=== PATIENT | male | born 1985 | race African-American/Black ===

== ENCOUNTER 2018-04-15 21:32 | Emergency (ER) | payer OTHER ==
[~2018-04-15] VITALS: Ht 182.9 cm; Wt 123.8 kg
--- NOTE | 2018-04-15 21:40 | NUR ---
PT BIBRA COMPLAINING OF FEELINGS OF DEPRESSION AND STATES HE IS FEELING TEMPTED TO USE DRUGS. PT DENIES SI, HI, AUDITORY/VISUAL HALLUCINATIONS. PT IS AAOX4. RESPIRATIONS EVEN AND UNLABORED. SKIN WARM AND INTACT. NO ACUTE DISTRESS NOTED AT THIS TIME. PT ABLE TO AMBULATE WITH STEADY GAIT. WILL CONTINUE TO MONITOR.
--- NOTE | 2018-04-15 21:48 | NUR ---
ER PA AT BEDSIDE FOR EVALUATION
--- NOTE | 2018-04-15 21:50 | NUR ---
URINE COLLECTED. CALLED LAB FOR SCALER
[2018-04-15 22:08] LABS: APPEARANCE,URINE CLEAR (CLEAR); BILIRUBIN,URINE NEGATIVE (NEGATIVE); BLOOD, URINE NEGATIVE Ery/uL (NEGATIVE); COLOR,URINE YELLOW (YELLOW); KETONES,URINE NEGATIVE (NEGATIVE); LEUKOCYTE ESTERASE ,URINE NEGATIVE (NEGATIVE); NITRITE, URINE NEGATIVE (NEGATIVE); PROTEIN,URINE NEGATIVE (NEGATIVE); UGLUCOSE NEGATIVE (NEGATIVE); UROBILINOGEN,URINE 0.2 EU/dL (0.2)
[2018-04-15 22:57] LABS: BASOPHILS % (AUTO) 0.1 % (0.0-2.0); HEMATOCRIT 45 % (39-51); HEMOGLOBIN 14.9 g/dL (13.5-17.5); LYMPHOCYTES # (AUTO) 1.1 /CMM (0.8-4.8); LYMPHOCYTES % (AUTO) 13.9 % (20.0-44.0); MEAN CORPUSCULAR HGB CONC 33 g/dl (31.0-36.0); MEAN CORPUSCULAR VOLUME 88 fL (80-96); MONOCYTES # (AUTO) 0.2 /CMM (0.1-1.30); MONOCYTES % (AUTO) 2.2 % (2.0-12.0); NEUTROPHILS # (AUTO) 6.6 /CMM (1.8-8.9); NEUTROPHILS % (AUTO) 83.8 % (43.0-81.0); PLATELET COUNT (AUTO) 324 /CMM (150-450); RED BLOOD CELL COUNT(AUTO) 5.09 MIL/uL (4.5-6.0); WHITE BLOOD COUNT (AUTO) 7.9 K/uL (4.3-11.0)
[2018-04-15 23:12] LABS: CALCIUM, SERUM 8.9 mg/dL (8.5-10.1); CARBON DIOXIDE 26 mmol/L (21-32); CHLORIDE 103 mmol/L (98-107); CREATININE 0.9 mg/dL (0.6-1.3); GLUCOSE 143 mg/dL (74-106); POTASSIUM 4.4 mmol/L (3.5-5.1); SODIUM SERUM 138 mmol/L (136-145); UREA NITROGEN, BLOOD 13 mg/dL (7-18)
[2018-04-15 23:18] LABS: ACETAMINOPHEN 0 ug/ml (10-30); ALANINE AMINOTRANSFERASE 252 U/L (12-78); ALBUMIN 3.4 g/dL (3.4-5.0); ALCOHOL, BLOOD < 3 mg/dL (0-0); ALKALINE PHOSPHATASE 143 U/L (46-116); ASPARTATE AMINOTRANSFERASE 37 U/L (15-37); BILIRUBIN,DIRECT 0.1 mg/dL (0.0-0.2); BILIRUBIN,TOTAL 0.2 mg/dL (0.2-1.0); SALICYLATE 0.2 mg/dL (2.8-20.0); TOTAL PROTEIN, SERUM 6.9 g/dL (6.4-8.2)
--- NOTE | 2018-04-16 00:36 | NUR ---
PT RESTING COMFORTABLY IN BED. EASILY AROUSABLE. VITAL SIGNS STABLE. WILL CONTINUE TO MONITOR.
--- NOTE | 2018-04-16 02:18 | NUR ---
RECEIVED A CALL FROM VIPIN AT [facility] INTAKE AND WAS TOLD THIS PT WAS ACCEPTED AT [facility] UNDER DR ADAMS. NUMBER FOR REPORT IS
--- NOTE | 2018-04-16 02:21 | NUR ---
CALLED [facility] TO ARRANGE BLS TRANSPORT TO [facility]. ETA OF [phone]. TRIP#: [id number]
--- NOTE | 2018-04-16 02:26 | NUR ---
GAVE REPORT TO SARAH FROM [facility] FOR MARGARTE
[2018-04-16 03:28] VITALS: BP 132/79
--- NOTE | 2018-04-16 03:52 | NUR ---
GAVE REPORT TO SHELBY FROM [facility] FOR MARGARET
== END 2018-04-16 04:00 ==
LOC: ER 21:34
DX: R45.851 Suicidal ideations (principal); F15.10 Other stimulant abuse, uncomplicated; F10.10 Alcohol abuse, uncomplicated; J45.909 Unspecified asthma, uncomplicated; F20.9 Schizophrenia, unspecified; F41.9 Anxiety disorder, unspecified; F32.9 Major depressive disorder, single episode, unspecified; Z98.890 Other specified postprocedural states
CPT/HCPCS: 36415; 80048-TC; 80076-TC; 80305; 81000-TC; 85025-TC; A4606; G0480; Z7610

== ENCOUNTER 2018-05-17 09:59 | Emergency (ER) | payer OTHER ==
[~2018-05-17] VITALS: Ht 185.4 cm; Wt 122.5 kg
--- NOTE | 2018-05-17 10:24 | NUR ---
BIB FOR MEDREFILL AND FLU-LIKE SYMPTOMS, PT ADMITS TO TAKING METH 2DAYS AGO. PT APPEARS SLEEPY, AROUSABLE, AAOX4, RESPIRATIONS EVEN AND UNLABORED. NO SOB, NAD NOTED, PT ON MONITOR, PENDING ER PROVIDER HERSON
--- NOTE | 2018-05-17 10:52 | NUR ---
CALLED FOR LUNCH TRAY
[2018-05-17 10:56] LABS: BASOPHILS # (AUTO) 0.1 /CMM (0.0-0.2); EOSINOPHILS % (AUTO) 1.1 % (0.0-6.0); HEMATOCRIT 47 % (39-51); HEMOGLOBIN 15.7 g/dL (13.5-17.5); LYMPHOCYTES # (AUTO) 2.1 /CMM (0.8-4.8); LYMPHOCYTES % (AUTO) 37.1 % (20.0-44.0); MEAN CORPUSCULAR HGB CONC 33 g/dl (31.0-36.0); MEAN CORPUSCULAR VOLUME 88 fL (80-96); MONOCYTES # (AUTO) 0.5 /CMM (0.1-1.30); MONOCYTES % (AUTO) 8.9 % (2.0-12.0); NEUTROPHILS # (AUTO) 2.9 /CMM (1.8-8.9); NEUTROPHILS % (AUTO) 51.9 % (43.0-81.0); PLATELET COUNT (AUTO) 304 /CMM (150-450); RED BLOOD CELL COUNT(AUTO) 5.35 MIL/uL (4.5-6.0); WHITE BLOOD COUNT (AUTO) 5.6 K/uL (4.3-11.0)
[2018-05-17] MEDS ORDERED: IV NS 0.9% 500 ML BAG IV ONE (11:00)
[2018-05-17 11:03] LABS: CALCIUM, SERUM 8.6 mg/dL (8.5-10.1); CARBON DIOXIDE 28 mmol/L (21-32); CHLORIDE 105 mmol/L (98-107); GLUCOSE 100 mg/dL (74-106); SODIUM SERUM 137 mmol/L (136-145); UREA NITROGEN, BLOOD 10 mg/dL (7-18)
[2018-05-17 11:09] LABS: ACETAMINOPHEN 0 ug/ml (10-30); ALANINE AMINOTRANSFERASE 29 U/L (12-78); ALBUMIN 3.6 g/dL (3.4-5.0); ALCOHOL, BLOOD < 3 mg/dL (0-0); ALKALINE PHOSPHATASE 77 U/L (46-116); ASPARTATE AMINOTRANSFERASE 11 U/L (15-37); BILIRUBIN,TOTAL 0.2 mg/dL (0.2-1.0); SALICYLATE 1.2 mg/dL (2.8-20.0); TOTAL PROTEIN, SERUM 6.9 g/dL (6.4-8.2)
[2018-05-17] MEDS ORDERED: BUPROPION XL 150 MG TAB.ER.24 PO SCH (11:30)
[2018-05-17] MEDS ORDERED: ARIPIPRAZOLE 5 MG TABLET PO ONE (11:30)
[2018-05-17 12:29] VITALS: BP 122/80
--- NOTE | 2018-05-17 12:29 | NUR ---
Patient discharged to home in stable condition. Written and verbal after care instructions given. Patient verbalizes understanding of instruction. IV removed. Catheter intact and site benign. Pressure and 4x4 applied to site. No bleeding noted.
== END 2018-05-17 12:30 | disposition home or self-care (01) ==
LOC: ER 10:03
DX: F31.9 Bipolar disorder, unspecified (principal); F19.10 Other psychoactive substance abuse, uncomplicated; J45.909 Unspecified asthma, uncomplicated; F20.9 Schizophrenia, unspecified; F41.9 Anxiety disorder, unspecified; Z98.890 Other specified postprocedural states
CPT/HCPCS: 36415; 80048; 80076; 80329; 85025; 96360; 99283; A4606; G0480 ×2; J7040; Z7610

== ENCOUNTER 2018-07-06 22:43 | Emergency (ER) | payer OTHER ==
[~2018-07-06] VITALS: Ht 177.8 cm; Wt 102.1 kg
--- NOTE | 2018-07-06 23:30 | NUR ---
PT PRESENTED TO THE ER WITH A C/O POSS STD, GOUT AND FEELING STRESSED AT HOME. PT WAS ANXIOUS ABOUT THE BLOOD DRAW AND WANTED TO GO FOR A SMOKE. PT LEFT AND CAME BACK FOR THE BLOOD DRAW.
[2018-07-06 23:42] LABS: BASOPHILS % (AUTO) 0.5 % (0.0-2.0); EOSINOPHILS % (AUTO) 0.6 % (0.0-6.0); HEMATOCRIT 48 % (39-51); LYMPHOCYTES # (AUTO) 2.6 /CMM (0.8-4.8); LYMPHOCYTES % (AUTO) 34.8 % (20.0-44.0); MEAN CORPUSCULAR HGB CONC 33 g/dl (31.0-36.0); MEAN CORPUSCULAR VOLUME 88 fL (80-96); MONOCYTES # (AUTO) 0.5 /CMM (0.1-1.30); MONOCYTES % (AUTO) 7.3 % (2.0-12.0); NEUTROPHILS # (AUTO) 4.2 /CMM (1.8-8.9); NEUTROPHILS % (AUTO) 56.8 % (43.0-81.0); PLATELET COUNT (AUTO) 327 /CMM (150-450); RED BLOOD CELL COUNT(AUTO) 5.41 MIL/uL (4.5-6.0); WHITE BLOOD COUNT (AUTO) 7.5 K/uL (4.3-11.0)
[2018-07-06 23:50] LABS: CALCIUM, SERUM 9.3 mg/dL (8.5-10.1); CARBON DIOXIDE 30 mmol/L (21-32); CHLORIDE 106 mmol/L (98-107); CREATININE 1.2 mg/dL (0.6-1.3); GLUCOSE 95 mg/dL (74-106); SODIUM SERUM 140 mmol/L (136-145); UREA NITROGEN, BLOOD 10 mg/dL (7-18)
--- NOTE | 2018-07-06 23:55 | NUR ---
CALLED NURSING CLEANING AND WASHING EQUIPMENT OPERATOR AT PT'S REQUEST.
[2018-07-06 23:56] LABS: ACETAMINOPHEN 0 ug/ml (10-30); ALANINE AMINOTRANSFERASE 24 U/L (12-78); ALBUMIN 4.3 g/dL (3.4-5.0); ALCOHOL, BLOOD < 3 mg/dL (0-0); ALKALINE PHOSPHATASE 90 U/L (46-116); ASPARTATE AMINOTRANSFERASE 14 U/L (15-37); BILIRUBIN,DIRECT 0.1 mg/dL (0.0-0.2); BILIRUBIN,TOTAL 0.1 mg/dL (0.2-1.0); SALICYLATE 1.5 mg/dL (2.8-20.0); TOTAL PROTEIN, SERUM 7.7 g/dL (6.4-8.2)
--- NOTE | 2018-07-07 00:06 | NUR ---
NURSING PRODUCTION TRAINER ARRIVED AND IS SPEAKING TO THE CHARGE NURSE
--- NOTE | 2018-07-07 00:09 | NUR ---
NURSING PROVIDER RELATIONS MANAGER, NGUYEN, IS SPEAKING TO THE PT.
--- NOTE | 2018-07-07 00:16 | NUR ---
WAS NOT ABLE TO OBTAIN A URINE SAMPLE YET. FRANCINE, STATED THAT WE DO NOT NEED A URINE SAMPLE AT THIS TIME.
--- NOTE | 2018-07-07 00:17 | NUR ---
DUONG ESCAMILLA, IS AT THE BEDSIDE SPEAKING TO THE PT.
[2018-07-07] MEDS ORDERED: LORAZEPAM 1 MG TABLET ONE (00:22)
--- NOTE | 2018-07-07 00:29 | NUR ---
Patient discharged to home in stable condition. Written and verbal after care instructions given. Patient verbalizes understanding of instruction. PT REFUSED ATIVAN PO. PT AMBULATED OUT WITH A STEADY GAIT. PT APPEARED UPSET. PT LEFT BEFORE LAST VS.
[2018-07-07] MEDS ORDERED: LORAZEPAM 1 MG TABLET PO ONE (00:30)
--- NOTE | 2018-07-07 00:32 | NUR ---
PT REFUSED 1MG ATIVAN. PT STATED THAT HE WANTS 2MG AND THAT HE TOLD THE DR THAT.
[2018-07-07 00:33] VITALS: BP 145/98
== END 2018-07-07 00:34 | disposition home or self-care (01) ==
LOC: ER 22:44
DX: F60.0 Paranoid personality disorder (principal); J45.909 Unspecified asthma, uncomplicated; F20.9 Schizophrenia, unspecified; F41.9 Anxiety disorder, unspecified; F32.9 Major depressive disorder, single episode, unspecified; Z98.890 Other specified postprocedural states
CPT/HCPCS: 36415; 80048; 80076; 80307; 80329; 85025; 99284; A4606; G0480

== ENCOUNTER 2018-09-21 01:59 | Emergency (ER) | payer OTHER ==
[~2018-09-21] VITALS: Ht 182.9 cm; Wt 93.9 kg
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
[2018-09-21] MEDS ORDERED: CARISOPRODOL 350 MG TABLET ONE (02:45)
[2018-09-21] MEDS ORDERED: IBUPROFEN 400 MG TABLET ONE (02:46)
--- NOTE | 2018-09-21 02:52 | NUR ---
pt refused motrin. soma was admionistered as ordered , aware
--- NOTE | 2018-09-21 02:55 | NUR ---
Patient discharged to home in stable condition. Written and verbal after care instructions given. Patient verbalizes understanding of instruction. pt waslked out of the er in stable/ steady gait.
[2018-09-21 02:56] VITALS: BP 116/85
[2018-09-21] MEDS ORDERED: IBUPROFEN 400 MG TABLET PO ONE (03:00)
[2018-09-21] MEDS ORDERED: CARISOPRODOL 350 MG TABLET PO ONE (03:00)
== END 2018-09-21 02:55 | disposition home or self-care (01) ==
LOC: ER 02:02
DX: G89.29 Other chronic pain (principal); M54.9 Dorsalgia, unspecified; J45.909 Unspecified asthma, uncomplicated; F20.9 Schizophrenia, unspecified; F41.9 Anxiety disorder, unspecified; F32.9 Major depressive disorder, single episode, unspecified; F17.200 Nicotine dependence, unspecified, uncomplicated; Z98.890 Other specified postprocedural states

== ENCOUNTER → 2018-09-25 | Emergency (ER) ==
[~2018-09-25] VITALS: Ht 182.9 cm; Wt 122.5 kg
[~2018-09-25] MED LIST: CARISOPRODOL 350 MG TABLET ONE; CARISOPRODOL 350 MG TABLET PO ONE
--- NOTE | 2018-09-25 21:45 | NUR ---
BIB SELF WITH HER GIRLFRIEND. AAOX4. NAD, BREATHING EVEN AND UNLABORED. AMBULATORY. C/O NECK PAIN X 2 WEEKS WITH FEELING OF TIGHTNESS 12/11, C/O CHRONIC BACK PAIN, FEELING OF MUSCLE THIGHTNESS. PT STATES THAT HE IS ALSO FEELING ANXIOUS. PT WOULD ALSO LIKE TO HAVE AN STD CHECK. PT TO ER BED 3. AWAITING MD BAINS.
--- NOTE | 2018-09-25 22:14 | NUR ---
DR. PORRAS AT BEDSIDE
--- NOTE | 2018-09-25 22:14 | NUR ---
Thais palumbo in [facility] - 09/25/[address] HEMPHILL AT BEDSIDE
--- NOTE | 2018-09-25 22:19 | NUR ---
PT ASK TO HAVE HIS GIRLFRIEND'S RECORD CHECKED BY . PT IS WITH HIS GIRLFRIEND. VERBAL CONSENT FROM BREANA ENRIQUE [birth year] OBTAINED TO ACCESS HER FILE.
--- NOTE | 2018-09-25 22:31 | NUR ---
PT GIVEN SPECIMEN CUP FOR URINE COLLECTION, PT STATES THE HE CANT PEE AT THIS TIME.
--- NOTE | 2018-09-25 22:45 | NUR ---
PT AMBULATED TO BATHROOM WITH STEADY GAIT.
--- NOTE | 2018-09-25 23:00 | NUR ---
URINE SPECIMEN SUBMITTED BY PT. SENT OT LAB
[2018-09-25 23:31] VITALS: BP 123/70
--- NOTE | 2018-09-25 23:32 | NUR ---
CALL [phone] FOR URINE TEST RESULT
--- NOTE | 2018-09-25 23:33 | NUR ---
Patient discharged to home in stable condition. Written and verbal after care instructions given. Patient verbalizes understanding of instruction. Pt ambulatory with a steady gait
== END | disposition home or self-care (01) ==
LOC: ER 21:15
DX: G89.29 Other chronic pain (principal); M54.9 Dorsalgia, unspecified; Z20.2 Contact with and (suspected) exposure to infections with a predominantly sexual mode of transmission; F17.200 Nicotine dependence, unspecified, uncomplicated; J45.909 Unspecified asthma, uncomplicated; F41.9 Anxiety disorder, unspecified; F32.9 Major depressive disorder, single episode, unspecified; F20.9 Schizophrenia, unspecified; Z98.890 Other specified postprocedural states
CPT/HCPCS: 87491; 87591

== ENCOUNTER 2018-09-28 20:07 | Emergency (ER) | payer OTHER ==
[~2018-09-28] VITALS: Ht 182.9 cm; Wt 122.5 kg
--- NOTE | 2018-09-28 20:21 | NUR ---
CALLED PT TO BE TRIAGED 3X, NO ANSWER
[2018-09-28 21:25] VITALS: BP 126/70
--- NOTE | 2018-09-28 22:08 | NUR ---
ATTEMPTED TO PUT PT IN ROOM, NO ANSWER
[2018-09-28] MEDS ORDERED: HYDROCODONE/APAP 10/325MG 1 EA TABLET ONE (23:15)
[2018-09-28] MEDS ORDERED: NAPROXEN 250 MG TABLET ONE (23:15)
[2018-09-28] MEDS: NAPROXEN 500 MG TABLET PO ONE (23:20)
[2018-09-28] MEDS: HYDROCODONE/APAP 10/325MG 1 EA TABLET PO ONE (23:20)
--- NOTE | 2018-09-28 23:21 | NUR ---
PT WAS ASKED IF HE DROVE TO THE [facility]. PT SAID NO. PT REC'D MEDICATION AND THEN SAID: "SORRY, I LIED. I DID DRIVE, BUT I CAN WAIT HERE UNTIL IT WEARS OFF". PT WAS INSTRUCTED NOT TO DRIVE. PT IS WAITING IN THE WAITING ROOM UNTIL THE MORNING.
== END 2018-09-28 23:24 | disposition home or self-care (01) ==
LOC: ER 20:13
DX: M25.561 Pain in right knee (principal); J45.909 Unspecified asthma, uncomplicated; F20.9 Schizophrenia, unspecified; F41.9 Anxiety disorder, unspecified; F32.9 Major depressive disorder, single episode, unspecified; F17.200 Nicotine dependence, unspecified, uncomplicated; Z98.890 Other specified postprocedural states
CPT/HCPCS: J2274

== ENCOUNTER 2018-10-01 15:20 | Emergency (ER) | payer OTHER ==
--- NOTE | 2018-10-01 15:30 | NUR ---
PT IS UNCOOPERATIVE AND CRYING STATING HE NEEDS HELP BUT DOES'NT GIVE INFORMATION. TO ER BED 8, HOOKED TO MONITOR, AWAITING MD BAINS.
--- NOTE | 2018-10-01 16:00 | NUR ---
PT IS ON ER CHAIR 1 UNCOOPERATIVE, ROMAN BOTELLO AT BEDSIDE FOR EVAL PT STILL REFUSES TO COOPERATE. DR. BEACH AWARE.
--- NOTE | 2018-10-01 16:08 | NUR ---
PT SHOW SIGNS OF AGGRESSIVENESS. CHARGE NURSE AWARE. SECURITY AT BEDSIDE.
--- NOTE | 2018-10-01 16:09 | NUR ---
DR. BEACH AT BEDSIDE FOR EVAL.
[2018-10-01] MEDS ORDERED: HALOPERIDOL LACTATE INJ 5 MG/ML VIAL ONE ×2 (16:21→16:27)
[2018-10-01] MEDS ORDERED: LORAZEPAM INJ 2 MG/ML VIAL ONE ×2 (16:21→16:27)
[2018-10-01] MEDS ORDERED: HALOPERIDOL LACTATE INJ 5 MG/ML VIAL IVP ONE (16:30)
[2018-10-01] MEDS ORDERED: IV NS 0.9% 1,000 ML BAG IV ONE ×2 (16:30→17:00)
[2018-10-01] MEDS ORDERED: LORAZEPAM INJ 2 MG/ML VIAL IVP ONE (16:30)
[2018-10-01] MEDS: diphenhydrAMINE HCL 50 MG/ML VIAL IV ONE ×2 (16:39→16:46)
[2018-10-01 16:41] LABS: BASOPHILS # (AUTO) 0.1 /CMM (0.0-0.2); BASOPHILS % (AUTO) 0.9 % (0.0-2.0); HEMATOCRIT 45 % (39-51); LYMPHOCYTES # (AUTO) 2.9 /CMM (0.8-4.8); LYMPHOCYTES % (AUTO) 36.4 % (20.0-44.0); MEAN CORPUSCULAR HGB CONC 33 g/dl (31.0-36.0); MEAN CORPUSCULAR VOLUME 89 fL (80-96); MONOCYTES # (AUTO) 0.7 /CMM (0.1-1.30); MONOCYTES % (AUTO) 8.5 % (2.0-12.0); NEUTROPHILS # (AUTO) 4.3 /CMM (1.8-8.9); NEUTROPHILS % (AUTO) 53.2 % (43.0-81.0); PLATELET COUNT (AUTO) 291 /CMM (150-450); RED BLOOD CELL COUNT(AUTO) 5.07 MIL/uL (4.5-6.0)
[2018-10-01] MEDS ORDERED: diphenhydrAMINE HCL 50 MG/ML VIAL ONE (16:43)
[2018-10-01 16:44] LABS: ALCOHOL, BLOOD < 3 mg/dL (0-0); CALCIUM, SERUM 8.9 mg/dL (8.5-10.1); CARBON DIOXIDE 26 mmol/L (21-32); CHLORIDE 103 mmol/L (98-107); CREATININE 0.9 mg/dL (0.6-1.3); GLUCOSE 89 mg/dL (74-106); POTASSIUM 4.9 mmol/L (3.5-5.1); SODIUM SERUM 138 mmol/L (136-145); UREA NITROGEN, BLOOD 13 mg/dL (7-18)
--- NOTE | 2018-10-01 18:04 | NUR ---
PT COMFORTABLY ASLEEP IN BED, HOOKED TO MONITOR, VSS. WILL CONTINUE TO MONITOR ACCORDINGLY.
--- NOTE | 2018-10-01 19:33 | NUR ---
REPORT GIVEN TO RIMA LOPEZ FOR MARGARET
--- NOTE | 2018-10-02 00:34 | NUR ---
URINE COLLECTED AND SENT TO LAB
[2018-10-02 05:33] VITALS: BP 118/67
== END 2018-10-02 05:34 | disposition home or self-care (01) ==
LOC: ER 15:23
DX: F32.9 Major depressive disorder, single episode, unspecified (principal); F19.10 Other psychoactive substance abuse, uncomplicated; J45.909 Unspecified asthma, uncomplicated; F20.9 Schizophrenia, unspecified; F41.9 Anxiety disorder, unspecified; F17.200 Nicotine dependence, unspecified, uncomplicated; Z98.890 Other specified postprocedural states
CPT/HCPCS: 36415; 80048; 80305; 80307; 85025; 93005; 96374; 96375; 99284; J1200; J2060; J7030 ×2; G0480; J1630

== ENCOUNTER 2019-05-02 08:52 | Emergency (ER) | payer OTHER ==
[~2019-05-02] VITALS: Ht 180.3 cm; Wt 99.8 kg
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
--- NOTE | 2019-05-02 09:17 | NUR ---
CALLED RANULFO TO MAKE REPORT.
--- NOTE | 2019-05-02 09:28 | NUR ---
wheeled patient via gurney going to x-ray
--- NOTE | 2019-05-02 10:23 | NUR ---
social service at bedside talking to patient.
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
--- NOTE | 2019-05-02 12:05 | NUR ---
Patient discharged to home in stable condition. Written and verbal after care instructions given. Patient verbalizes understanding of instruction.
[2019-05-02 12:06] VITALS: BP 112/60
== END 2019-05-02 12:08 | disposition home or self-care (01) ==
LOC: ER 08:52
DX: R51 Headache (principal); J45.909 Unspecified asthma, uncomplicated; F20.9 Schizophrenia, unspecified; F31.9 Bipolar disorder, unspecified; F41.9 Anxiety disorder, unspecified; F17.200 Nicotine dependence, unspecified, uncomplicated; Z98.890 Other specified postprocedural states; Y04.0XXA Assault by unarmed brawl or fight, initial encounter; Y93.89 Activity, other specified; Y92.89 Other specified places as the place of occurrence of the external cause; Y99.8 Other external cause status
CPT/HCPCS: 70450-TC

== ENCOUNTER → 2019-06-16 | Emergency (ER) | payer OTHER ==
[~2019-06-16] VITALS: Ht 185.4 cm; Wt 124.7 kg
[~2019-06-16] MED LIST changes: -CARISOPRODOL 350 MG TABLET ONE; -CARISOPRODOL 350 MG TABLET PO ONE; +OLANZAPINE 5 MG TABLET ONE; +OLANZAPINE 5 MG TABLET PO ONE
--- NOTE | 2019-06-16 16:00 | NUR ---
CALLED TO TRIAGE,NO ANSWER
--- NOTE | 2019-06-16 16:31 | NUR ---
PT AAOX4. AMBULATORY WITH STEADY GAIT. PT C/O FEELING ANXIOUS AND REQUESTING MANAGER AREA CONSULT FOR PLACEMENT IN DETOX PROGRAM. PER PT HE WAS SEEN AT [facility]. VSS. NO ACUTE DISTRESS NOTED. VSS. AWAITING MD FOR EVAL.
[2019-06-16 17:10] VITALS: BP 142/72
--- NOTE | 2019-06-16 17:10 | NUR ---
Patient discharged to home in stable condition. Written and verbal after care instructions given. Patient verbalizes understanding of instruction. Rajwinder pain. vss.
== END | disposition home or self-care (01) ==
LOC: ER 18:48
DX: F15.10 Other stimulant abuse, uncomplicated (principal); F17.200 Nicotine dependence, unspecified, uncomplicated; F10.10 Alcohol abuse, uncomplicated; F20.9 Schizophrenia, unspecified; J45.909 Unspecified asthma, uncomplicated; F41.9 Anxiety disorder, unspecified; F32.9 Major depressive disorder, single episode, unspecified; Z98.890 Other specified postprocedural states; Y90.9 Presence of alcohol in blood, level not specified

== ENCOUNTER 2019-07-05 02:03 | Emergency (ER) | payer OTHER ==
[~2019-07-05] VITALS: Ht 182.9 cm; Wt 117.9 kg
[2019-07-05] MEDS ORDERED: LORAZEPAM INJ 2 MG/ML VIAL ONE (02:55)
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
[2019-07-05] MEDS ORDERED: LORAZEPAM INJ 2 MG/ML VIAL IM ONE (03:30)
--- NOTE | 2019-07-05 03:47 | NUR ---
PT IN BED SLEEPING
--- NOTE | 2019-07-05 05:21 | NUR ---
PT IN BED SLEEPING COMFORTABLY
[2019-07-05 07:55] VITALS: BP 125/77
--- NOTE | 2019-07-05 07:56 | NUR ---
Patient discharged to home in stable condition. Written and verbal after care instructions given. Patient verbalizes understanding of instruction.
== END 2019-07-05 07:55 | disposition home or self-care (01) ==
LOC: ER 02:05
DX: F41.9 Anxiety disorder, unspecified (principal); J45.909 Unspecified asthma, uncomplicated; Z86.59 Personal history of other mental and behavioral disorders
CPT/HCPCS: 96372; 99284; J2060

== ENCOUNTER 2019-07-30 15:49 | Emergency (ER) | payer OTHER ==
[~2019-07-30] VITALS: Ht 182.9 cm; Wt 118.4 kg
[2019-07-30 15:53] VITALS: BP 130/73
[2019-07-30] MEDS ORDERED: LORAZEPAM INJ 2 MG/ML VIAL ONE (16:18)
[2019-07-30] MEDS ORDERED: LORAZEPAM INJ 2 MG/ML VIAL IM ONE (16:30)
== END 2019-07-30 16:56 | disposition home or self-care (01) ==
LOC: ER 15:52
DX: F41.9 Anxiety disorder, unspecified (principal); J45.909 Unspecified asthma, uncomplicated; F20.9 Schizophrenia, unspecified; F31.9 Bipolar disorder, unspecified; Z98.890 Other specified postprocedural states
CPT/HCPCS: 96372; 99283; J2060

== ENCOUNTER 2019-08-10 21:15 | Emergency (ER) | payer OTHER ==
[~2019-08-10] VITALS: Ht 182.9 cm; Wt 104.3 kg
[2019-08-10 21:15] VITALS: BP 133/75
--- NOTE | 2019-08-10 21:53 | NUR ---
Patient discharged to home in stable condition. Written and verbal after care instructions given. Patient verbalizes understanding of instruction.
== END 2019-08-10 21:54 | disposition home or self-care (01) ==
LOC: ER 21:16
DX: F32.9 Major depressive disorder, single episode, unspecified (principal); Z76.0 Encounter for issue of repeat prescription; J45.909 Unspecified asthma, uncomplicated; F41.9 Anxiety disorder, unspecified; Z98.890 Other specified postprocedural states; F17.200 Nicotine dependence, unspecified, uncomplicated

== ENCOUNTER 2019-08-20 00:33 | Emergency (ER) | payer OTHER ==
[~2019-08-20] VITALS: Ht 182.9 cm; Wt 104.3 kg
--- NOTE | 2019-08-20 00:49 | NUR ---
BIBSELF C/O SUICIDAL IDEATION WITH PLAN TO RUN INTO TRAFFIC. PT ALSO C/O HALLUCINATIONS. PT AAOX4. CALM AND COOPERATIVE. RESPIRATIONS EVEN AND UNLABORED. SKIN INTACT. AMBULATORY WITH STEADY GAIT. PLACED IN GOWN. BELONGINGS COLLECTED AND PLACED IN PATIENT LOCKER. NO ACUTE DISTRESS NOTED AT THIS TIME. SECURITY CALLED FOR WANDING. WILL CONTINUE TO MONITOR
[2019-08-20 01:18] LABS: APPEARANCE,URINE Clear (CLEAR); BILIRUBIN,URINE Negative (NEGATIVE); BLOOD, URINE Negative Ery/uL (NEGATIVE); COLOR,URINE Yellow (YELLOW); KETONES,URINE Negative (NEGATIVE); LEUKOCYTE ESTERASE ,URINE Negative (NEGATIVE); NITRITE, URINE Negative (NEGATIVE); PROTEIN,URINE Trace mg/dl (NEGATIVE); UGLUCOSE Negative (NEGATIVE); UROBILINOGEN,URINE 0.2 EU/dL (0.2)
[2019-08-20 01:32] LABS: BASOPHILS # (AUTO) 0.1 /CMM (0.0-0.2); BASOPHILS % (AUTO) 0.9 % (0.0-2.0); EOSINOPHILS % (AUTO) 4.6 % (0.0-6.0); HEMATOCRIT 44 % (39-51); HEMOGLOBIN 14.3 g/dL (13.5-17.5); LYMPHOCYTES # (AUTO) 2.6 /CMM (0.8-4.8); LYMPHOCYTES % (AUTO) 30.3 % (20.0-44.0); MEAN CORPUSCULAR HGB CONC 32 g/dl (31.0-36.0); MEAN CORPUSCULAR VOLUME 89 fL (80-96); MONOCYTES # (AUTO) 0.7 /CMM (0.1-1.30); MONOCYTES % (AUTO) 8.5 % (2.0-12.0); NEUTROPHILS # (AUTO) 4.7 /CMM (1.8-8.9); NEUTROPHILS % (AUTO) 55.7 % (43.0-81.0); PLATELET COUNT (AUTO) 310 /CMM (150-450); RED BLOOD CELL COUNT(AUTO) 4.97 MIL/uL (4.5-6.0); WHITE BLOOD COUNT (AUTO) 8.4 K/uL (4.3-11.0)
[2019-08-20 01:41] LABS: CALCIUM, SERUM 8.8 mg/dL (8.5-10.1); CARBON DIOXIDE 29 mmol/L (21-32); CHLORIDE 100 mmol/L (98-107); CREATININE 1.2 mg/dL (0.6-1.3); GLUCOSE 86 mg/dL (74-106); POTASSIUM 3.4 mmol/L (3.5-5.1); SODIUM SERUM 137 mmol/L (136-145); UREA NITROGEN, BLOOD 9 mg/dL (7-18)
[2019-08-20 01:45] LABS: BACTERIA,URINE None seen /HPF (None Seen); RBC,URINE 0-2 /HPF (0-2); SQUAMOUS EPITHELIAL CELL,UR Few /HPF (None Seen); WBC,URINE 0-2 /HPF (0-3)
[2019-08-20 01:46] LABS: MUCUS,URINE Few /LPF (None Seen)
[2019-08-20 01:47] LABS: ACETAMINOPHEN 0 ug/ml (10-30); ALANINE AMINOTRANSFERASE 38 U/L (12-78); ALBUMIN 4.2 g/dL (3.4-5.0); ALCOHOL, BLOOD < 3 mg/dL (0-0); ALKALINE PHOSPHATASE 88 U/L (46-116); ASPARTATE AMINOTRANSFERASE 17 U/L (15-37); BILIRUBIN,DIRECT 0.1 mg/dL (0.0-0.2); BILIRUBIN,TOTAL 0.2 mg/dL (0.2-1.0); SALICYLATE 2.2 mg/dL (2.8-20.0); TOTAL PROTEIN, SERUM 7.9 g/dL (6.4-8.2)
--- NOTE | 2019-08-20 03:48 | NUR ---
PATIENT WAS ASLEEP UPON ENTERING ROOM. PATIENT WOKEN UP TO PLACE BLOOD PRESSURE CUFF AND PULSE OX READING ONTO PATIENT. CHEST RISES EVENLY. NO SIGNS OF RESPIRATORY DISTRESS. SITTER AT BEDSIDE. CONNECTED TO MONITOR.
--- NOTE | 2019-08-20 06:30 | NUR ---
Pt accepted to [facility] by Dr Dumont. # for report [phone]
--- NOTE | 2019-08-20 06:57 | NUR ---
Call the Car called for transport. ETA 2-3 hrs.
--- NOTE | 2019-08-20 07:17 | NUR ---
[facility] ambulance eta 1.5 hrs
--- NOTE | 2019-08-20 07:44 | NUR ---
REPORT GIVEN TO HERON LOPEZ.
--- NOTE | 2019-08-20 08:30 | NUR ---
PATIENT REFUSED TO GO TO [facility], DENIES BEING SUICIDAL. PER PATIENT HE'S GOING TO A [facility] T[facility] CENTER. PATIENT DENIES BEING HOMELESS. PATIENT GIVEN FOOD.
--- NOTE | 2019-08-20 10:05 | NUR ---
Patient discharged to home in stable condition. Written and verbal after care instructions given. Patient verbalizes understanding of instruction.
[2019-08-20 10:44] VITALS: BP 124/68
== END 2019-08-20 10:44 | disposition home or self-care (01) ==
LOC: ER 00:37
DX: R45.851 Suicidal ideations (principal); F19.10 Other psychoactive substance abuse, uncomplicated; J45.909 Unspecified asthma, uncomplicated; F20.9 Schizophrenia, unspecified; F32.9 Major depressive disorder, single episode, unspecified; F17.200 Nicotine dependence, unspecified, uncomplicated; F41.9 Anxiety disorder, unspecified; Z98.890 Other specified postprocedural states
CPT/HCPCS: 36415; 80048; 80076; 80305; 80307; 80329; 81001; 85025; 99283; G0480; 81000-TC

== ENCOUNTER 2019-08-22 01:24 | Emergency (ER) | payer OTHER ==
[~2019-08-22] VITALS: Ht 182.9 cm; Wt 104.3 kg
--- NOTE | 2019-08-22 01:30 | NUR ---
BIBRA C/O ANXIETY. PT AAOX4. VITAL SIGNS STABLE. CALM AND COOPERATIVE. RESPIRATIONS EVEN AND UNLABORED. SKIN INTACT. AMBULATORY WITH STEADY GAIT. NO ACUTE DISTRESS NOTED AT THIS TIME. WILL CONTINUE TO MONITOR
[2019-08-22] MEDS ORDERED: MAGNESIUM CITRATE 296 ML BOTTLE PO ONE (02:30)
[2019-08-22 02:53] LABS: BASOPHILS % (AUTO) 0.5 % (0.0-2.0); EOSINOPHILS % (AUTO) 4.3 % (0.0-6.0); HEMATOCRIT 44 % (39-51); HEMOGLOBIN 14.3 g/dL (13.5-17.5); LYMPHOCYTES % (AUTO) 31.3 % (20.0-44.0); MEAN CORPUSCULAR HGB CONC 33 g/dl (31.0-36.0); MEAN CORPUSCULAR VOLUME 89 fL (80-96); MONOCYTES # (AUTO) 0.6 /CMM (0.1-1.30); MONOCYTES % (AUTO) 8.8 % (2.0-12.0); NEUTROPHILS # (AUTO) 3.5 /CMM (1.8-8.9); NEUTROPHILS % (AUTO) 55.1 % (43.0-81.0); PLATELET COUNT (AUTO) 267 /CMM (150-450); RED BLOOD CELL COUNT(AUTO) 4.96 MIL/uL (4.5-6.0); WHITE BLOOD COUNT (AUTO) 6.4 K/uL (4.3-11.0)
[2019-08-22] MEDS ORDERED: MAGNESIUM CITRATE 296 ML BOTTLE ONE (02:58)
[2019-08-22 03:03] LABS: CALCIUM, SERUM 8.6 mg/dL (8.5-10.1); CARBON DIOXIDE 28 mmol/L (21-32); CHLORIDE 101 mmol/L (98-107); CREATININE 1.2 mg/dL (0.6-1.3); GLUCOSE 100 mg/dL (74-106); POTASSIUM 3.3 mmol/L (3.5-5.1); SODIUM SERUM 138 mmol/L (136-145); UREA NITROGEN, BLOOD 7 mg/dL (7-18)
[2019-08-22 03:09] LABS: ALANINE AMINOTRANSFERASE 28 U/L (12-78); ALBUMIN 3.7 g/dL (3.4-5.0); ALCOHOL, BLOOD < 3 mg/dL (0-0); ALKALINE PHOSPHATASE 73 U/L (46-116); ASPARTATE AMINOTRANSFERASE 10 U/L (15-37); BILIRUBIN,DIRECT 0.1 mg/dL (0.0-0.2); BILIRUBIN,TOTAL 0.2 mg/dL (0.2-1.0); TOTAL PROTEIN, SERUM 6.9 g/dL (6.4-8.2)
[2019-08-22 03:10] LABS: ACETAMINOPHEN 0 ug/ml (10-30); SALICYLATE 1.9 mg/dL (2.8-20.0)
[2019-08-22 04:45] LABS: APPEARANCE,URINE Clear (CLEAR); BILIRUBIN,URINE Negative (NEGATIVE); BLOOD, URINE Negative Ery/uL (NEGATIVE); COLOR,URINE Yellow (YELLOW); KETONES,URINE Negative (NEGATIVE); LEUKOCYTE ESTERASE ,URINE Negative (NEGATIVE); NITRITE, URINE Negative (NEGATIVE); PROTEIN,URINE Negative (NEGATIVE); UGLUCOSE Negative (NEGATIVE); UROBILINOGEN,URINE 0.2 EU/dL (0.2)
[2019-08-22] MEDS: POTASSIUM CHLORIDE 20 MEQ TAB.PRT.SR PO ONE ×2 (06:15→06:31)
[2019-08-22] MEDS ORDERED: POTASSIUM CHLORIDE 20 MEQ TAB.PRT.SR PO ONE (06:15)
[2019-08-22 06:33] VITALS: BP 132/80
--- NOTE | 2019-08-22 06:33 | NUR ---
Patient discharged to home in stable condition. Written and verbal after care instructions given. Patient verbalizes understanding of instruction.Pt ambulatory with a steady gait. Pt provided with list of resources
== END 2019-08-22 06:33 | disposition home or self-care (01) ==
LOC: ER 01:25
DX: F15.10 Other stimulant abuse, uncomplicated (principal); F41.9 Anxiety disorder, unspecified; F17.200 Nicotine dependence, unspecified, uncomplicated; J45.909 Unspecified asthma, uncomplicated; F20.9 Schizophrenia, unspecified; F32.9 Major depressive disorder, single episode, unspecified; Z98.890 Other specified postprocedural states
CPT/HCPCS: 36415; 80048; 80076; 80305; 80307; 80329; 81001; 85025; 99283; 99406; G0480; 81000-TC

== ENCOUNTER 2019-08-22 23:43 | Emergency (ER) | payer OTHER ==
[~2019-08-22] VITALS: Ht 182.9 cm; Wt 90.7 kg
--- NOTE | 2019-08-23 00:12 | NUR ---
CALLED FOR TRIAGE, NO ANSWER
--- NOTE | 2019-08-23 00:26 | NUR ---
CALLED FOR TRIAGE, NO RESPONSE
--- NOTE | 2019-08-23 00:36 | NUR ---
CALLED FOR TRIAGE, NO ANSWER
[2019-08-23 00:45] VITALS: BP 131/88
== END 2019-08-23 01:00 | disposition home or self-care (01) ==
LOC: ER 23:46
DX: F41.9 Anxiety disorder, unspecified (principal); J45.909 Unspecified asthma, uncomplicated; F20.9 Schizophrenia, unspecified; Z98.890 Other specified postprocedural states; Z76.5 Malingerer [conscious simulation]

== ENCOUNTER 2019-08-25 01:02 | Emergency (ER) | payer OTHER ==
[~2019-08-25] VITALS: Ht 182.9 cm; Wt 90.7 kg
[2019-08-25 01:02] VITALS: BP 132/89
== END 2019-08-25 01:50 | disposition home or self-care (01) ==
LOC: ER 01:02
DX: F41.9 Anxiety disorder, unspecified (principal); Z76.5 Malingerer [conscious simulation]; J45.909 Unspecified asthma, uncomplicated; F32.9 Major depressive disorder, single episode, unspecified; F17.200 Nicotine dependence, unspecified, uncomplicated; Z98.890 Other specified postprocedural states

== ENCOUNTER 2019-10-15 01:12 | Emergency (ER) | payer OTHER ==
--- NOTE | 2019-10-15 01:20 | NUR ---
pt called to triage no response.
--- NOTE | 2019-10-15 01:30 | NUR ---
Pt called to triage no response.
--- NOTE | 2019-10-15 01:40 | NUR ---
Pt called to triage. No response.
== END 2019-10-15 01:40 | disposition left against medical advice (07) ==
LOC: ER 01:15
DX: Z53.21 Procedure and treatment not carried out due to patient leaving prior to being seen by health care provider (principal)

== ENCOUNTER 2019-10-22 08:04 | Emergency (ER) | payer OTHER ==
[~2019-10-22] VITALS: Ht 182.9 cm; Wt 102.1 kg
--- NOTE | 2019-10-22 08:13 | NUR ---
DR LANGSTON AT BEDSIDE FOR EVAL
[2019-10-22] MEDS ORDERED: LORAZEPAM 1 MG TABLET ONE (08:21)
--- NOTE | 2019-10-22 08:22 | NUR ---
HYDRAULIC CORRUGATING MACHINE OPERATOR AT BEDSIDE FOR BLOOD DRAW.
[2019-10-22] MEDS ORDERED: LORAZEPAM 1 MG TABLET PO ONE (08:30)
[2019-10-22 08:52] LABS: APPEARANCE,URINE Clear (CLEAR); BILIRUBIN,URINE Negative (NEGATIVE); BLOOD, URINE Negative Ery/uL (NEGATIVE); COLOR,URINE Yellow (YELLOW); KETONES,URINE Negative (NEGATIVE); LEUKOCYTE ESTERASE ,URINE Negative (NEGATIVE); NITRITE, URINE Negative (NEGATIVE); PH,URINE 6.5 (5.0-8.0); PROTEIN,URINE Negative (NEGATIVE); UGLUCOSE Negative (NEGATIVE); UROBILINOGEN,URINE 0.2 EU/dL (0.2)
[2019-10-22 08:59] LABS: BASOPHILS % (AUTO) 0.5 % (0.0-2.0); EOSINOPHILS % (AUTO) 1.3 % (0.0-6.0); HEMATOCRIT 49 % (39-51); LYMPHOCYTES # (AUTO) 1.4 /CMM (0.8-4.8); MEAN CORPUSCULAR HGB CONC 33 g/dl (31.0-36.0); MEAN CORPUSCULAR VOLUME 90 fL (80-96); MONOCYTES # (AUTO) 0.6 /CMM (0.1-1.30); MONOCYTES % (AUTO) 9.6 % (2.0-12.0); NEUTROPHILS # (AUTO) 4.3 /CMM (1.8-8.9); NEUTROPHILS % (AUTO) 66.6 % (43.0-81.0); PLATELET COUNT (AUTO) 322 /CMM (150-450); RED BLOOD CELL COUNT(AUTO) 5.45 MIL/uL (4.5-6.0); WHITE BLOOD COUNT (AUTO) 6.4 K/uL (4.3-11.0)
[2019-10-22 09:19] LABS: CALCIUM, SERUM 9.3 mg/dL (8.5-10.1); CARBON DIOXIDE 31 mmol/L (21-32); CHLORIDE 101 mmol/L (98-107); CREATININE 1.3 mg/dL (0.6-1.3); GLUCOSE 105 mg/dL (74-106); POTASSIUM 3.8 mmol/L (3.5-5.1); SODIUM SERUM 137 mmol/L (136-145); UREA NITROGEN, BLOOD 13 mg/dL (7-18)
[2019-10-22 09:25] LABS: ALANINE AMINOTRANSFERASE 37 U/L (12-78); ALBUMIN 4.4 g/dL (3.4-5.0); ALCOHOL, BLOOD < 3 mg/dL (0-0); ALKALINE PHOSPHATASE 89 U/L (46-116); ASPARTATE AMINOTRANSFERASE 12 U/L (15-37); BILIRUBIN,DIRECT 0.1 mg/dL (0.0-0.2); BILIRUBIN,TOTAL 0.3 mg/dL (0.2-1.0); TOTAL PROTEIN, SERUM 7.9 g/dL (6.4-8.2)
[2019-10-22 09:32] LABS: ACETAMINOPHEN < 2 ug/ml (10-30); SALICYLATE 1.3 mg/dL (2.8-20.0)
--- NOTE | 2019-10-22 10:02 | NUR ---
PT RESTING IN BED. ON MONITOR. VSS. WILL CONTINUE TO MONITOR.
--- NOTE | 2019-10-22 10:06 | NUR ---
CALLED [facility] [phone] LEFT [facility].
--- NOTE | 2019-10-22 11:38 | NUR ---
SENT FAX TO [facility]
--- NOTE | 2019-10-22 13:52 | NUR ---
PT STATED HE IS NOT SUICIDAL AND WANTS TO BE DISCHARGED. MD AWARE.
[2019-10-22 13:53] VITALS: BP 129/74
--- NOTE | 2019-10-22 13:53 | NUR ---
Patient discharged to home in stable condition. Written and verbal after care instructions given. Patient verbalizes understanding of instruction.
== END 2019-10-22 13:54 | disposition home or self-care (01) ==
LOC: ER 08:07
DX: F41.9 Anxiety disorder, unspecified (principal); R45.851 Suicidal ideations; J45.909 Unspecified asthma, uncomplicated; F32.9 Major depressive disorder, single episode, unspecified; F17.200 Nicotine dependence, unspecified, uncomplicated; Z98.890 Other specified postprocedural states
CPT/HCPCS: 36415; 80048; 80076; 80305; 80307; 80329; 81001; 85025; 99283; G0480; 81000-TC

== ENCOUNTER 2019-10-28 06:54 | Emergency (ER) | payer OTHER ==
[~2019-10-28] VITALS: Ht 182.9 cm; Wt 113.4 kg
--- NOTE | 2019-10-28 06:58 | NUR ---
CALLED PT TO BE TRIAGED, NOT IN WAITING ROOM
--- NOTE | 2019-10-28 07:08 | NUR ---
CALLED PT TO BE TRIAGED, NOT IN WAITING ROOM
[2019-10-28 07:37] VITALS: BP 109/84
== END 2019-10-28 08:07 | disposition home or self-care (01) ==
LOC: ER 06:54
DX: F41.9 Anxiety disorder, unspecified (principal); F20.9 Schizophrenia, unspecified; F31.9 Bipolar disorder, unspecified; J45.909 Unspecified asthma, uncomplicated; Z98.890 Other specified postprocedural states; Z76.0 Encounter for issue of repeat prescription

== ENCOUNTER 2019-11-02 02:27 | Emergency (ER) | payer OTHER ==
[~2019-11-02] VITALS: Ht 182.9 cm; Wt 113.4 kg
[2019-11-02] MEDS: DICYCLOMINE HCL 10 MG CAPSULE PO ONE (02:40)
[2019-11-02] MEDS: LIDOCAINE VISCOUS 2% UD 15 ML UDC MM ONE (02:40)
[2019-11-02] MEDS: MAG HYDROX/AL HYDROX/SIMETH 30 ML UDC PO ONE (02:40)
[2019-11-02] MEDS ORDERED: MAG HYDROX/AL HYDROX/SIMETH 30 ML UDC ONE (02:42)
[2019-11-02] MEDS ORDERED: LIDOCAINE VISCOUS 2% UD 15 ML UDC ONE (02:42)
[2019-11-02] MEDS ORDERED: DICYCLOMINE HCL 10 MG CAPSULE PO ONE (02:42)
--- NOTE | 2019-11-02 02:51 | NUR ---
DISC PAD PLATE FILLER (ROSALIND) IS AT THE BEDSIDE FOR BLOOD DRAW.
--- NOTE | 2019-11-02 02:51 | NUR ---
PT REC'D MEDICATION ORDERED.
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
[2019-11-02] MEDS: LORAZEPAM INJ 2 MG/ML VIAL IM ONE (03:00)
[2019-11-02] MEDS ORDERED: LORAZEPAM INJ 2 MG/ML VIAL ONE (03:02)
[2019-11-02 03:04] LABS: BASOPHILS # (AUTO) 0.1 /CMM (0.0-0.2); BASOPHILS % (AUTO) 0.9 % (0.0-2.0); EOSINOPHILS % (AUTO) 3.6 % (0.0-6.0); HEMATOCRIT 46 % (39-51); HEMOGLOBIN 15.1 g/dL (13.5-17.5); LYMPHOCYTES # (AUTO) 2.2 /CMM (0.8-4.8); LYMPHOCYTES % (AUTO) 26.9 % (20.0-44.0); MEAN CORPUSCULAR HGB CONC 33 g/dl (31.0-36.0); MEAN CORPUSCULAR VOLUME 89 fL (80-96); MONOCYTES # (AUTO) 0.6 /CMM (0.1-1.30); NEUTROPHILS % (AUTO) 61.6 % (43.0-81.0); PLATELET COUNT (AUTO) 286 /CMM (150-450); RED BLOOD CELL COUNT(AUTO) 5.18 MIL/uL (4.5-6.0); WHITE BLOOD COUNT (AUTO) 8.1 K/uL (4.3-11.0)
--- NOTE | 2019-11-02 03:08 | NUR ---
PT IS STILL IN THE BATHROOM.
--- NOTE | 2019-11-02 03:16 | NUR ---
PT RETURNED FROM THE BATHROOM. PT WAS UNABLE TO GIVE A URINE SAMPLE. PT STATED THAT HE USED THE BATHROOM IN [employer].
[2019-11-02 03:18] LABS: ALANINE AMINOTRANSFERASE 37 U/L (12-78); ALBUMIN 4.3 g/dL (3.4-5.0); ALKALINE PHOSPHATASE 90 U/L (46-116); ASPARTATE AMINOTRANSFERASE 26 U/L (15-37); BILIRUBIN,TOTAL 0.2 mg/dL (0.2-1.0); CALCIUM, SERUM 9.4 mg/dL (8.5-10.1); CARBON DIOXIDE 31 mmol/L (21-32); CHLORIDE 102 mmol/L (98-107); CREATININE 1.3 mg/dL (0.6-1.3); GLUCOSE 90 mg/dL (74-106); LIPASE 190 U/L (73-393); POTASSIUM 3.9 mmol/L (3.5-5.1); SODIUM SERUM 139 mmol/L (136-145); UREA NITROGEN, BLOOD 13 mg/dL (7-18)
--- NOTE | 2019-11-02 03:22 | NUR ---
EKG DONE AT THE BEDSIDE.
[2019-11-02 03:26] LABS: BILIRUBIN,DIRECT 0.1 mg/dL (0.0-0.2)
[2019-11-02 03:56] VITALS: BP 117/70
== END 2019-11-02 03:58 | disposition home or self-care (01) ==
LOC: ER 02:28
DX: R10.13 Epigastric pain (principal); F41.9 Anxiety disorder, unspecified; F17.210 Nicotine dependence, cigarettes, uncomplicated; J45.909 Unspecified asthma, uncomplicated; F20.9 Schizophrenia, unspecified; F31.9 Bipolar disorder, unspecified; Z98.890 Other specified postprocedural states
CPT/HCPCS: 36415; 80048; 80076; 83690; 84484; 85025; 93005; 96372; 99284; 99406; J2060

== ENCOUNTER 2020-01-11 01:26 | Emergency (ER) | payer OTHER ==
[~2020-01-11] VITALS: Ht 185.4 cm; Wt 113.4 kg
[2020-01-11] MEDS ORDERED: LORAZEPAM 1 MG TABLET ONE (01:36)
[2020-01-11 01:38] VITALS: BP 148/79
--- NOTE | 2020-01-11 01:38 | NUR ---
PT AAOX4. BIBSELF C/O ANXIETY ATTACK -SI/-HI. PLACED IN BED 14 ON MONITOR AND PULSE OX,.
[2020-01-11] MEDS ORDERED: LORAZEPAM 1 MG TABLET PO ONE (02:00)
--- NOTE | 2020-01-11 02:24 | NUR ---
Patient discharged to home in stable condition. Written and verbal after care instructions given. Patient verbalizes understanding of instruction.
--- NOTE | 2020-01-11 02:25 | NUR ---
Patient given written and verbal discharge instructions. Patient verbalizes understanding of instructions. Patient is ambulatory with steady gait. Refuses offer of [facility] placement. Patient given list of available shelters in surrounding area.
== END 2020-01-11 02:26 | disposition home or self-care (01) ==
LOC: ER 01:27
DX: F41.9 Anxiety disorder, unspecified (principal); J45.909 Unspecified asthma, uncomplicated; F20.9 Schizophrenia, unspecified; F31.9 Bipolar disorder, unspecified; Z98.890 Other specified postprocedural states

== ENCOUNTER 2020-02-09 03:34 | Emergency (ER) | payer OTHER ==
[~2020-02-09] VITALS: Ht 185.4 cm; Wt 113.4 kg
[2020-02-09 03:35] VITALS: BP 132/64
[2020-02-09] MEDS ORDERED: DIAZEPAM 5 MG TABLET ONE (03:46)
[2020-02-09] MEDS: DIAZEPAM 10 MG TABLET PO ONE (03:58)
== END 2020-02-09 04:03 | disposition home or self-care (01) ==
LOC: ER 03:34
DX: F41.9 Anxiety disorder, unspecified (principal); J45.909 Unspecified asthma, uncomplicated; F20.9 Schizophrenia, unspecified; F31.9 Bipolar disorder, unspecified; F17.210 Nicotine dependence, cigarettes, uncomplicated; Z76.0 Encounter for issue of repeat prescription; Z98.890 Other specified postprocedural states

== ENCOUNTER 2020-03-29 02:22 | Emergency (ER) | payer OTHER ==
[~2020-03-29] VITALS: Ht 185.4 cm; Wt 113.4 kg
[2020-03-29 02:27] VITALS: BP 141/81
== END 2020-03-29 06:13 | disposition home or self-care (01) ==
LOC: ER 02:25
DX: F41.1 Generalized anxiety disorder (principal); J45.909 Unspecified asthma, uncomplicated; F20.9 Schizophrenia, unspecified; F32.9 Major depressive disorder, single episode, unspecified; F17.200 Nicotine dependence, unspecified, uncomplicated; Z98.890 Other specified postprocedural states

== ENCOUNTER 2020-04-23 23:00 | Emergency (ER) | payer OTHER ==
[~2020-04-23] VITALS: Ht 182.9 cm; Wt 116.1 kg
--- NOTE | 2020-04-24 00:04 | NUR ---
mac [phone] from [facility] for "manic episode" while waiting for a bed. pt aox4 rr even and unlabored. no sob noted. no nvd at this time. no acute distress noted. pt denies si/hi. pt appears to be relaxed and calm at this time.
[2020-04-24 00:20] LABS: BILIRUBIN,URINE Negative (NEGATIVE); BLOOD, URINE Negative Ery/uL (NEGATIVE); COLOR,URINE YELLOW (YELLOW); LEUKOCYTE ESTERASE ,URINE Negative (NEGATIVE); NITRITE, URINE Negative (NEGATIVE); PROTEIN,URINE Negative (NEGATIVE); UGLUCOSE Negative (NEGATIVE); UROBILINOGEN,URINE 0.2 EU/dL (0.2)
[2020-04-24 00:33] LABS: BASOPHILS % (AUTO) 1.1 % (0.0-2.0); EOSINOPHILS % (AUTO) 0.5 % (0.0-6.0); HEMATOCRIT 46 % (39-51); HEMOGLOBIN 15.2 g/dL (13.5-17.5); LYMPHOCYTES # (AUTO) 1.4 /CMM (0.8-4.8); LYMPHOCYTES % (AUTO) 33.7 % (20.0-44.0); MEAN CORPUSCULAR HGB CONC 33 g/dl (31.0-36.0); MEAN CORPUSCULAR VOLUME 88 fL (80-96); MONOCYTES # (AUTO) 0.4 /CMM (0.1-1.30); MONOCYTES % (AUTO) 8.9 % (2.0-12.0); NEUTROPHILS # (AUTO) 2.4 /CMM (1.8-8.9); NEUTROPHILS % (AUTO) 55.8 % (43.0-81.0); PLATELET COUNT (AUTO) 292 /CMM (150-450); RED BLOOD CELL COUNT(AUTO) 5.25 MIL/uL (4.5-6.0); WHITE BLOOD COUNT (AUTO) 4.2 K/uL (4.3-11.0)
[2020-04-24 00:43] LABS: CALCIUM, SERUM 9.5 mg/dL (8.5-10.1); CARBON DIOXIDE 31 mmol/L (21-32); CHLORIDE 102 mmol/L (98-107); CREATININE 1.1 mg/dL (0.6-1.3); GLUCOSE 118 mg/dL (74-106); SODIUM SERUM 140 mmol/L (136-145); UREA NITROGEN, BLOOD 12 mg/dL (7-18)
[2020-04-24 00:51] LABS: ALANINE AMINOTRANSFERASE 31 U/L (12-78); ALBUMIN 4.3 g/dL (3.4-5.0); ALCOHOL, BLOOD < 3 mg/dL (0-0); ALKALINE PHOSPHATASE 74 U/L (46-116); ASPARTATE AMINOTRANSFERASE 25 U/L (15-37); BILIRUBIN,TOTAL 0.2 mg/dL (0.2-1.0); TOTAL PROTEIN, SERUM 8.3 g/dL (6.4-8.2)
[2020-04-24 00:54] LABS: ACETAMINOPHEN < 10 ug/ml (10-30)
[2020-04-24 01:50] VITALS: BP 148/89
--- NOTE | 2020-04-24 01:57 | NUR ---
PT DENIES SI AND HI. PT REFUSED TO WAIT FOR DISCHARGE PAPERWORK. PT AMBULATED OUT OF E.Avi VSS. AWARE.
== END 2020-04-24 01:59 | disposition home or self-care (01) ==
LOC: ER 23:01
DX: F31.9 Bipolar disorder, unspecified (principal); J45.909 Unspecified asthma, uncomplicated; F41.9 Anxiety disorder, unspecified; F20.9 Schizophrenia, unspecified; F17.200 Nicotine dependence, unspecified, uncomplicated; Z98.890 Other specified postprocedural states
CPT/HCPCS: 36415; 80048-TC; 80076-TC; 85025-TC; G0480

== ENCOUNTER 2020-04-24 09:02 | Emergency (ER) | payer OTHER ==
[~2020-04-24] VITALS: Ht 182.9 cm; Wt 113.4 kg
--- NOTE | 2020-04-24 16:36 | NUR ---
SW met with the patient in the waiting room with strain technicianViktoria Lucia. Patient reported to this SW that he would like to be referred for voluntary admission to [address], [place] [address] as he has spoken with Naif at Intake. SW spoke with patient regarding voluntary psychiatric hospitalization, patient reported that he wanted to go to a detox facility but is not feeling well and wants to go to a voluntary psychiatric facility. SW informed patient that this SW has to meet with patient's ED physician at this time and notify them of this request. Patient in understanding. This SW spoke with Dr. Laws regarding patient's request. Dr. Laws agreed with this plan and asked this SW for assistance to borja this request for the patient. AZ faxed clinicals to [facility] (fax) and notified Joey at [facility] regarding this referral . SW also called [facility] however at this time no member services representative was available. Plan: AZ notified strain technician Dr. Veto Lucia ED physician needs to provide a note stating the patient is medically cleared for voluntary psychiatric admission and COVID-19 Rapid Test needs to be done. SW to follow-up with Joey at [facility] regarding this referral .
--- NOTE | 2020-04-24 16:51 | NUR ---
Per Joey at [facility] , patient will have a bed pending ED physician note and COVID-19 test. SW notified excel analystViktoria Lucia regarding this information and this SW will also follow-up with tester/lift trucker Bipin.
--- NOTE | 2020-04-24 20:36 | NUR ---
ASSUMED CARE OF PT. PT CALM AND COOPERATIVE SITTING IN ER CHAIR AWAITING PLACEMENT.
--- NOTE | 2020-04-24 20:38 | NUR ---
PER [facility] INTAKE NO BED AVAILABLE AT [facility] AT THIS TIME. PT MADE AWARE OF NO BED AVILABILITY AT THIS TIME. PT STATES "I DONT REALLY NEED A BED, I JUST NEED A PLACE TO STAY UNTIL MORNING, I DON'T EVEN FEEL SUICIDAL ANYMORE, I'LL LET YOU KNOW HOW I FEEL LATER AND I'LL DECIDE WHAT TO DO."
--- NOTE | 2020-04-24 22:32 | NUR ---
PT CALLED REQUESTING TO LEAVE AND STAY IN THE WAITING ROOM UNTIL 0600AM THEN HE WILL LEAVE. PT STATES "I JUST DON'T WANT TO TAKE UP A BED WHEN YOU JOVANNA'S CAN HELP OTHERS". PT AMBULATORY TO THE WAITING ROOM AND REFUSES TO WAIT FOR DISCHARGE INSTRUCTION.
--- NOTE | 2020-04-25 01:06 | NUR ---
SPOKE TO [facility] RADHA SCHMIDT REGARDING PT AND STATE'S "WE CAN TAKE THE PT BUT NO AVAILABLE BEDS AT THIS TIME BUT WILL PUT ON PRIORITY LIST AFTER 8AM"
--- NOTE | 2020-04-25 01:32 | NUR ---
PT MADE AWARE OF NO BED AVAILABLE UNTIL 8AM. PT VERBALIZE AND WILLING TO WAIT UNTIL 8AM BEED AVAILABLITY.
[2020-04-25 03:42] LABS: BASOPHILS % (AUTO) 0.6 % (0.0-2.0); EOSINOPHILS % (AUTO) 1.9 % (0.0-6.0); HEMATOCRIT 46 % (39-51); HEMOGLOBIN 15.2 g/dL (13.5-17.5); LYMPHOCYTES # (AUTO) 1.8 /CMM (0.8-4.8); LYMPHOCYTES % (AUTO) 38.4 % (20.0-44.0); MEAN CORPUSCULAR HGB CONC 33 g/dl (31.0-36.0); MEAN CORPUSCULAR VOLUME 87 fL (80-96); MONOCYTES # (AUTO) 0.6 /CMM (0.1-1.30); MONOCYTES % (AUTO) 13.6 % (2.0-12.0); NEUTROPHILS # (AUTO) 2.2 /CMM (1.8-8.9); NEUTROPHILS % (AUTO) 45.5 % (43.0-81.0); PLATELET COUNT (AUTO) 285 /CMM (150-450); RED BLOOD CELL COUNT(AUTO) 5.25 MIL/uL (4.5-6.0); WHITE BLOOD COUNT (AUTO) 4.7 K/uL (4.3-11.0)
[2020-04-25 03:51] LABS: CALCIUM, SERUM 9.1 mg/dL (8.5-10.1); CARBON DIOXIDE 28 mmol/L (21-32); CHLORIDE 105 mmol/L (98-107); CREATININE 1.1 mg/dL (0.6-1.3); GLUCOSE 93 mg/dL (74-106); POTASSIUM 3.1 mmol/L (3.5-5.1); SODIUM SERUM 140 mmol/L (136-145); UREA NITROGEN, BLOOD 13 mg/dL (7-18)
[2020-04-25 03:56] LABS: ALANINE AMINOTRANSFERASE 30 U/L (12-78); ALBUMIN 4.2 g/dL (3.4-5.0); ALCOHOL, BLOOD < 3 mg/dL (0-0); ALKALINE PHOSPHATASE 67 U/L (46-116); ASPARTATE AMINOTRANSFERASE 19 U/L (15-37); BILIRUBIN,DIRECT 0.1 mg/dL (0.0-0.2); BILIRUBIN,TOTAL 0.3 mg/dL (0.2-1.0)
[2020-04-25 03:57] LABS: ACETAMINOPHEN < 10 ug/ml (10-30)
--- NOTE | 2020-04-25 03:59 | NUR ---
Call from lab. Rapid covid negative.
--- NOTE | 2020-04-25 10:50 | NUR ---
CALLED FOR GYPSY
[2020-04-25 11:14] LABS: BILIRUBIN,URINE NEGATIVE (NEGATIVE); BLOOD, URINE NEGATIVE Ery/uL (NEGATIVE); COLOR,URINE YELLOW (YELLOW); LEUKOCYTE ESTERASE ,URINE NEGATIVE (NEGATIVE); NITRITE, URINE NEGATIVE (NEGATIVE); PH,URINE 6.5 (5.0-8.0); PROTEIN,URINE NEGATIVE (NEGATIVE); UGLUCOSE NEGATIVE (NEGATIVE); UROBILINOGEN,URINE 0.2 EU/dL (0.2)
[2020-04-25] MEDS ORDERED: POTASSIUM CHLORIDE 20 MEQ TAB.PRT.SR PO ONE ×2 (11:43→12:00)
--- NOTE | 2020-04-25 12:28 | NUR ---
SW met with the patient at bedside. Patient is known to this SW. This SW and patient followed up regarding plan to be transferred to [facility]. Patient remains in agreement regarding a voluntary psychiatric hospitalization. Plan: SW to follow-up with Joey at [facility] regarding bed status. Per ED notes, patient has been accepted pending bed status.
--- NOTE | 2020-04-25 12:31 | NUR ---
[place] spoke with Joey at [facility]. Per Joey, patient has been accepted pending a review from [facility]. SW to follow-up with [facility] regarding status of referral if one is not provided.
--- NOTE | 2020-04-25 12:42 | NUR ---
[facility] CALLED PT IS ACCEPTED IN [facility] ACCEPTING MD IS CAM[place] CALL [phone] LAW FOR REPORT.
--- NOTE | 2020-04-25 12:56 | NUR ---
CALLED [id number] [phone]
[2020-04-25 14:09] VITALS: BP 136/78
--- NOTE | 2020-04-25 14:09 | NUR ---
REPORT GIVEN TO NIVIA LOPEZ AT [facility]
== END 2020-04-24 23:55 ==
LOC: ER 09:09
DX: F31.9 Bipolar disorder, unspecified (principal); F41.9 Anxiety disorder, unspecified; F20.9 Schizophrenia, unspecified; J45.909 Unspecified asthma, uncomplicated; Z82.49 Family history of ischemic heart disease and other diseases of the circulatory system; E87.6 Hypokalemia; F15.10 Other stimulant abuse, uncomplicated; Z20.828 Contact with and (suspected) exposure to other viral communicable diseases
CPT/HCPCS: 36415; 80048; 80076; 80299; 80307; 80320; 81003; 85025; 87426; 99283; C9803; G0480

== ENCOUNTER 2020-05-06 04:04 | Emergency (ER) | payer OTHER ==
[~2020-05-06] VITALS: Ht 182.9 cm; Wt 113.4 kg
[2020-05-06 04:44] VITALS: BP 143/76
--- NOTE | 2020-05-06 04:45 | NUR ---
TO ER BED C/O "IM HEARING VOICES TELL ME TO KILL MYSELF" PT DENEIS HI. PT [facility] PT AAOX4 NO ACUTE DISTRESS NOTED, RESP EVEN AND UNLABORED. PT CALM AND COOPERATIVE AT THIS TIME. WILL CONTINUE TO MONITOR PT CLOSELY.
--- NOTE | 2020-05-06 05:32 | NUR ---
URINE SAMPLE AND COVID SWAB COLLECTED AND SENT TO LAB.
[2020-05-06 06:03] LABS: BILIRUBIN,URINE NEGATIVE (NEGATIVE); COLOR,URINE YELLOW (YELLOW); LEUKOCYTE ESTERASE ,URINE NEGATIVE (NEGATIVE); NITRITE, URINE NEGATIVE (NEGATIVE); PROTEIN,URINE 30 mg/dl (NEGATIVE); UGLUCOSE NEGATIVE (NEGATIVE); UROBILINOGEN,URINE 0.2 EU/dL (0.2)
[2020-05-06 06:08] LABS: BACTERIA,URINE None seen /HPF (None Seen); RBC,URINE 0-2 /HPF (0-2); SQUAMOUS EPITHELIAL CELL,UR Few /HPF (None Seen); URINE AMORPHOUS PHOSPHATES Few /HPF (None Seen)
[2020-05-06 06:09] LABS: MUCUS,URINE Few /LPF (None Seen); SPERM,URINE Rare /HPF (None Seen)
--- NOTE | 2020-05-06 06:29 | NUR ---
LAB CALLED REGARDING NEGATIVE COVID RESULT.
--- NOTE | 2020-05-06 07:00 | NUR ---
Unable to find patient. Possibly Eloped
--- NOTE | 2020-05-06 07:30 | NUR ---
Searched the whole ER department PT NOT responding. Possibly Eloped. elementary school registrar made aware
--- NOTE | 2020-05-06 08:00 | NUR ---
Searched the whole ER department PT NOT responding. Possibly Eloped. academic associate made aware
[2020-05-06 08:02] LABS: BASOPHILS % (AUTO) 0.6 % (0.0-2.0); EOSINOPHILS % (AUTO) 1.4 % (0.0-6.0); HEMATOCRIT 48 % (39-51); HEMOGLOBIN 15.7 g/dL (13.5-17.5); LYMPHOCYTES # (AUTO) 2.2 /CMM (0.8-4.8); LYMPHOCYTES % (AUTO) 35.9 % (20.0-44.0); MEAN CORPUSCULAR HGB CONC 33 g/dl (31.0-36.0); MEAN CORPUSCULAR VOLUME 89 fL (80-96); MONOCYTES # (AUTO) 0.6 /CMM (0.1-1.30); MONOCYTES % (AUTO) 9.2 % (2.0-12.0); NEUTROPHILS # (AUTO) 3.3 /CMM (1.8-8.9); NEUTROPHILS % (AUTO) 52.9 % (43.0-81.0); PLATELET COUNT (AUTO) 334 /CMM (150-450); RED BLOOD CELL COUNT(AUTO) 5.38 MIL/uL (4.5-6.0); WHITE BLOOD COUNT (AUTO) 6.2 K/uL (4.3-11.0)
[2020-05-06 08:27] LABS: CALCIUM, SERUM 9.4 mg/dL (8.5-10.1); CARBON DIOXIDE 27 mmol/L (21-32); CHLORIDE 102 mmol/L (98-107); CREATININE 1.1 mg/dL (0.6-1.3); GLUCOSE 92 mg/dL (74-106); POTASSIUM 3.9 mmol/L (3.5-5.1); SODIUM SERUM 137 mmol/L (136-145); UREA NITROGEN, BLOOD 10 mg/dL (7-18)
[2020-05-06 08:32] LABS: ALANINE AMINOTRANSFERASE 37 U/L (12-78); ALBUMIN 4.4 g/dL (3.4-5.0); ALCOHOL, BLOOD < 3 mg/dL (0-0); ASPARTATE AMINOTRANSFERASE 23 U/L (15-37); BILIRUBIN,DIRECT 0.1 mg/dL (0.0-0.2); BILIRUBIN,TOTAL 0.3 mg/dL (0.2-1.0); TOTAL PROTEIN, SERUM 8.4 g/dL (6.4-8.2)
[2020-05-06 08:36] LABS: ACETAMINOPHEN < 2 ug/ml (10-30)
[2020-05-06 08:47] LABS: ALKALINE PHOSPHATASE 74 U/L (46-116)
== END 2020-05-06 11:44 | disposition left against medical advice (07) ==
LOC: ER 04:05
DX: R45.851 Suicidal ideations (principal); F20.9 Schizophrenia, unspecified; F31.9 Bipolar disorder, unspecified; J45.909 Unspecified asthma, uncomplicated; Z87.828 Personal history of other (healed) physical injury and trauma; Z20.822 Contact with and (suspected) exposure to COVID-19
CPT/HCPCS: 36415; 80048; 80076; 80299; 80307; 80320; 81001; 85025; 87426; 99285; C9803; G0480

== ENCOUNTER 2020-12-07 18:02 | Emergency (ER) | payer OTHER ==
[~2020-12-07] VITALS: Ht 182.9 cm; Wt 113.4 kg
[2020-12-07 19:00] LABS: BILIRUBIN,URINE Negative (NEGATIVE); COLOR,URINE YELLOW (YELLOW); LEUKOCYTE ESTERASE ,URINE Negative (NEGATIVE); NITRITE, URINE Negative (NEGATIVE); PROTEIN,URINE Negative (NEGATIVE); UGLUCOSE Negative (NEGATIVE); UROBILINOGEN,URINE 0.2 EU/dL (0.2)
[2020-12-07 19:04] LABS: BACTERIA,URINE Few /HPF (None Seen); MUCUS,URINE Few /LPF (None Seen); RBC,URINE 0-2 /HPF (0-2); SQUAMOUS EPITHELIAL CELL,UR Few /HPF (None Seen)
--- NOTE | 2020-12-07 19:19 | NUR ---
COVID SWAB COLLECTED AND SENT TO LAB
[2020-12-07 19:21] LABS: BASOPHILS # (AUTO) 0.1 K/uL (0.0-0.2); BASOPHILS % (AUTO) 0.8 % (0.0-2.0); EOSINOPHILS % (AUTO) 5.6 % (0.0-6.0); HEMATOCRIT 49 % (39-51); HEMOGLOBIN 15.7 g/dL (13.5-17.5); LYMPHOCYTES % (AUTO) 31.8 % (20.0-44.0); MEAN CORPUSCULAR HGB CONC 32 g/dl (31.0-36.0); MEAN CORPUSCULAR VOLUME 90 fL (80-96); MONOCYTES # (AUTO) 0.7 K/uL (0.1-1.30); MONOCYTES % (AUTO) 7.8 % (2.0-12.0); NEUTROPHILS # (AUTO) 5.1 K/uL (1.8-8.9); PLATELET COUNT (AUTO) 271 K/uL (150-450); RED BLOOD CELL COUNT(AUTO) 5.44 MIL/uL (4.5-6.0); WHITE BLOOD COUNT (AUTO) 9.4 K/uL (4.3-11.0)
[2020-12-07 19:29] LABS: CALCIUM, SERUM 8.9 mg/dL (8.5-10.1); CARBON DIOXIDE 26 mmol/L (21-32); CHLORIDE 105 mmol/L (98-107); CREATININE 1.1 mg/dL (0.6-1.3); GLUCOSE 98 mg/dL (74-106); POTASSIUM 4.2 mmol/L (3.5-5.1); SODIUM SERUM 141 mmol/L (136-145); UREA NITROGEN, BLOOD 12 mg/dL (7-18)
--- NOTE | 2020-12-07 19:30 | NUR ---
pt bibself "FEELING DEPRESSED,WANTS TO GO TO [facility]", pt denies sob/cp. vss. not in acute distress, pending er provider kevanal
[2020-12-07 19:35] LABS: ACETAMINOPHEN 0 ug/ml (10-30); ALANINE AMINOTRANSFERASE 26 U/L (12-78); ALBUMIN 4.3 g/dL (3.4-5.0); ALCOHOL, BLOOD < 3 mg/dL (0-0); ALKALINE PHOSPHATASE 80 U/L (46-116); ASPARTATE AMINOTRANSFERASE 12 U/L (15-37); BILIRUBIN,DIRECT 0.1 mg/dL (0.0-0.2); BILIRUBIN,TOTAL 0.1 mg/dL (0.2-1.0); TOTAL PROTEIN, SERUM 8.1 g/dL (6.4-8.2)
--- NOTE | 2020-12-07 21:42 | NUR ---
FACESHEET AND CLINICALS FAXED TO ANSHUL RODRIGUEZ.
--- NOTE | 2020-12-08 05:00 | NUR ---
PATIENT PROVIDED WITH FLUIDS. PATIENT VSS. PATIENT IN NO ACUTE DISTRESS.
--- NOTE | 2020-12-08 07:47 | NUR ---
CALLED [facility] INTAKE THEY ARE LOOKING AT [facility]
--- NOTE | 2020-12-08 08:28 | NUR ---
PT IS ACCEPTED AT [facility] BY AND FOR REPORT CALL JESSICA ESTEVEZ [phone] [phone]
[2020-12-08 08:30] VITALS: BP 122/72
--- NOTE | 2020-12-08 08:38 | NUR ---
CALLED [facility] ETA TO 0900
--- NOTE | 2020-12-08 08:46 | NUR ---
REPORT GIVEN TO JESSICA PEGUERO OF [facility] FOR MARGARET.
--- NOTE | 2020-12-08 09:21 | NUR ---
REPORT GIVEN TO EMT FOR PT TRANSFER TO [facility].
== END 2020-12-08 09:44 ==
LOC: ER 18:03
DX: R45.851 Suicidal ideations (principal); F31.9 Bipolar disorder, unspecified; F20.9 Schizophrenia, unspecified; J45.909 Unspecified asthma, uncomplicated; Z20.822 Contact with and (suspected) exposure to COVID-19
CPT/HCPCS: 36415; 80048; 80076; 80143; 80307; 80320; 81001; 85025; 87426; 99285; C9803; G0480

== ENCOUNTER 2022-07-27 08:31 | Emergency (ER) | payer OTHER ==
[~2022-07-27] VITALS: Ht 172.7 cm; Wt 89.8 kg
--- NOTE | 2022-07-27 09:00 | NUR ---
BIBS FOR SI/MEDICAL CLEARANCE. A/O X 3, TOLERATING WELL ON ROOM AIR.
--- NOTE | 2022-07-27 09:08 | NUR ---
COVID SWAB COLLECTED AND SENT TO LAB
--- NOTE | 2022-07-27 09:08 | NUR ---
URINE SAMPLE COLLECTED AND SENT TO LAB
[2022-07-27 09:40] VITALS: BP 131/83
[2022-07-27 10:16] LABS: BILIRUBIN,URINE NEGATIVE (NEGATIVE); COLOR,URINE YELLOW (YELLOW); LEUKOCYTE ESTERASE ,URINE NEGATIVE (NEGATIVE); NITRITE, URINE NEGATIVE (NEGATIVE); PH,URINE 6.5 (5.0-8.0); PROTEIN,URINE NEGATIVE (NEGATIVE); UGLUCOSE NEGATIVE (NEGATIVE); UROBILINOGEN,URINE 0.2 EU/dL (0.2)
[2022-07-27 12:32] LABS: BASOPHILS % (AUTO) 0.3 % (0.0-2.0); EOSINOPHILS % (AUTO) 1.6 % (0.0-6.0); HEMATOCRIT 43 % (39-51); LYMPHOCYTES % (AUTO) 24.3 % (20.0-44.0); MEAN CORPUSCULAR HGB CONC 32 g/dl (31.0-36.0); MEAN CORPUSCULAR VOLUME 89 fL (80-96); MONOCYTES # (AUTO) 0.5 K/uL (0.1-1.30); MONOCYTES % (AUTO) 5.4 % (2.0-12.0); NEUTROPHILS # (AUTO) 5.7 K/uL (1.8-8.9); NEUTROPHILS % (AUTO) 68.4 % (43.0-81.0); PLATELET COUNT (AUTO) 312 K/uL (150-450); RED BLOOD CELL COUNT(AUTO) 4.88 MIL/uL (4.5-6.0); WHITE BLOOD COUNT (AUTO) 8.3 K/uL (4.3-11.0)
[2022-07-27 13:11] LABS: CALCIUM, SERUM 8.8 mg/dL (8.5-10.1); CARBON DIOXIDE 27 mmol/L (21-32); CHLORIDE 106 mmol/L (98-107); GLUCOSE 145 mg/dL (74-106); POTASSIUM 4.3 mmol/L (3.5-5.1); SODIUM SERUM 139 mmol/L (136-145); UREA NITROGEN, BLOOD 9 mg/dL (7-18)
[2022-07-27 13:20] LABS: ALANINE AMINOTRANSFERASE 41 U/L (12-78); ALBUMIN 3.4 g/dL (3.4-5.0); ALCOHOL, BLOOD < 3 mg/dL (0-0); ALKALINE PHOSPHATASE 105 U/L (46-116); ASPARTATE AMINOTRANSFERASE 20 U/L (15-37); BILIRUBIN,TOTAL 0.1 mg/dL (0.2-1.0)
[2022-07-27 13:21] LABS: ACETAMINOPHEN 0 ug/ml (10-30)
--- NOTE | 2022-07-27 14:39 | NUR ---
Patient stated he wanted to leave hospital immediately, MD made aware. Patient left hospital AMA without signing AMA paperwork. Patient was made aware of risks of leaving hospital before being cleared by MD, patient refused to remain in hospital x 3. Patient left hospital with all belongings and was stable at time of elopement.
== END 2022-07-27 14:42 | disposition left against medical advice (07) ==
LOC: ER 08:44
DX: R45.851 Suicidal ideations (principal); F10.10 Alcohol abuse, uncomplicated; J45.909 Unspecified asthma, uncomplicated; F20.9 Schizophrenia, unspecified; F31.9 Bipolar disorder, unspecified; F41.9 Anxiety disorder, unspecified; F17.200 Nicotine dependence, unspecified, uncomplicated; Z20.822 Contact with and (suspected) exposure to COVID-19; Y90.0 Blood alcohol level of less than 20 mg/100 ml
CPT/HCPCS: 99285; 85025; 80048; 80076; 81003; 36415; 87426; 80143; 80320; 80307; C9803; G0480

== ENCOUNTER 2022-07-28 09:10 | Emergency (ER) | payer OTHER ==
[~2022-07-28] VITALS: Ht 172.7 cm; Wt 70.8 kg
--- NOTE | 2022-07-28 09:10 | NUR ---
BIBS [facility] HES FEELING DEPRESSED DENIES HI AND HI
[2022-07-28 13:20] LABS: BILIRUBIN,URINE NEGATIVE (NEGATIVE); COLOR,URINE YELLOW (YELLOW); LEUKOCYTE ESTERASE ,URINE NEGATIVE (NEGATIVE); NITRITE, URINE NEGATIVE (NEGATIVE); PH,URINE 7.5 (5.0-8.0); PROTEIN,URINE NEGATIVE (NEGATIVE); UGLUCOSE NEGATIVE (NEGATIVE); UROBILINOGEN,URINE 0.2 EU/dL (0.2)
[2022-07-28 13:23] LABS: BACTERIA,URINE None seen /HPF (None Seen); RBC,URINE 0-2 /HPF (0-2); SQUAMOUS EPITHELIAL CELL,UR Rare /HPF (None Seen); WBC,URINE 0-2 /HPF (0-3)
--- NOTE | 2022-07-28 14:46 | NUR ---
Patient discharged to home in stable condition. Written and verbal after care instructions given. Patient verbalizes understanding of instruction.
[2022-07-28 16:28] VITALS: BP 134/89
== END 2022-07-28 16:28 | disposition home or self-care (01) ==
LOC: ER 09:13
DX: R45.851 Suicidal ideations (principal); F32.A Depression, unspecified; F41.9 Anxiety disorder, unspecified; J40 Bronchitis, not specified as acute or chronic; F20.9 Schizophrenia, unspecified; F17.200 Nicotine dependence, unspecified, uncomplicated; Z20.822 Contact with and (suspected) exposure to COVID-19
CPT/HCPCS: 99285; 87426; 81001; 36415; 80307; C9803

== ENCOUNTER 2022-08-06 21:31 | Emergency (ER) | payer OTHER ==
[~2022-08-06] VITALS: Ht 188 cm; Wt 122.5 kg
--- NOTE | 2022-08-06 23:54 | NUR ---
COVID ANTIGEN SWAB COLLECTED AND SENT TO LAB
--- NOTE | 2022-08-06 23:54 | NUR ---
BIBSELF FROM HOME C/O DEPRESSION, ANXIETY, AND HEARING VOICES DENIES SI/HI. REQUESTING VOLUNTARY ADMIT TO [facility]. PT A/OX4. TOLERATING R/A WELL WITH NO RESP DISTRESS. AMB WITH STEADY GAIT. PT CHANGED IN GOWN, BELONGINGS COLLECTED, WANDED BY SECURITY. SAFETY MEASURES IN PLACE.
[2022-08-07 00:35] LABS: BILIRUBIN,URINE NEGATIVE (NEGATIVE); COLOR,URINE YELLOW (YELLOW); LEUKOCYTE ESTERASE ,URINE NEGATIVE (NEGATIVE); NITRITE, URINE NEGATIVE (NEGATIVE); PROTEIN,URINE NEGATIVE (NEGATIVE); UGLUCOSE NEGATIVE (NEGATIVE); UROBILINOGEN,URINE 0.2 EU/dL (0.2)
[2022-08-07 00:37] LABS: BASOPHILS % (AUTO) 0.1 % (0.0-2.0); EOSINOPHILS % (AUTO) 4.5 % (0.0-6.0); HEMATOCRIT 50 % (39-51); HEMOGLOBIN 15.9 g/dL (13.5-17.5); LYMPHOCYTES # (AUTO) 0.3 K/uL (0.8-4.8); LYMPHOCYTES % (AUTO) 5.2 % (20.0-44.0); MEAN CORPUSCULAR HGB CONC 32 g/dl (31.0-36.0); MEAN CORPUSCULAR VOLUME 90 fL (80-96); MONOCYTES # (AUTO) 0.1 K/uL (0.1-1.30); MONOCYTES % (AUTO) 1.1 % (2.0-12.0); NEUTROPHILS # (AUTO) 5.3 K/uL (1.8-8.9); NEUTROPHILS % (AUTO) 89.1 % (43.0-81.0); PLATELET COUNT (AUTO) 359 K/uL (150-450); RED BLOOD CELL COUNT(AUTO) 5.59 MIL/uL (4.5-6.0)
[2022-08-07 01:09] LABS: POTASSIUM 3.8 mmol/L (3.5-5.1)
[2022-08-07 01:11] LABS: BILIRUBIN,DIRECT 0.1 mg/dL (0.0-0.2); BILIRUBIN,TOTAL 0.3 mg/dL (0.2-1.0); CALCIUM, SERUM 9.2 mg/dL (8.5-10.1); CREATININE 1.2 mg/dL (0.6-1.3)
[2022-08-07 01:12] LABS: ALBUMIN 4.4 g/dL (3.4-5.0); TOTAL PROTEIN, SERUM 8.5 g/dL (6.4-8.2)
[2022-08-07] MEDS ORDERED: LORAZEPAM 1 MG TABLET ONE (04:36)
[2022-08-07] MEDS ORDERED: LORAZEPAM 1 MG TABLET PO ONE (05:00)
--- NOTE | 2022-08-07 05:55 | NUR ---
CLINICALS FAXED TO INTAKE
--- NOTE | 2022-08-07 06:27 | NUR ---
PATIENT ACCEPTED AT [facility] UNDER THE CARE OF DR. NOYOLA. JAVIER GONZÁLES RN SUP FOR REPORT
--- NOTE | 2022-08-07 06:41 | NUR ---
report given to max arriaga
--- NOTE | 2022-08-07 07:12 | NUR ---
Patient discharged to home in stable condition. Written and verbal after care instructions given. Patient verbalizes understanding of instruction.
[2022-08-07 07:13] VITALS: BP 136/107
== END 2022-08-07 07:16 ==
LOC: ER 21:32
DX: F32.A Depression, unspecified (principal); R45.850 Homicidal ideations; F29 Unspecified psychosis not due to a substance or known physiological condition; F41.9 Anxiety disorder, unspecified; F17.200 Nicotine dependence, unspecified, uncomplicated; Z20.822 Contact with and (suspected) exposure to COVID-19
CPT/HCPCS: 99285; 36415; 87426; 80307; 85025; 80048; 80076; 81003; 80143; 80320; C9803; G0480

== ENCOUNTER 2022-08-17 06:38 | Emergency (ER) | payer OTHER ==
[~2022-08-17] VITALS: Ht 182.9 cm; Wt 122.5 kg
[2022-08-17] MEDS ORDERED: ONDANSETRON 4 MG TAB.RAPDIS PO ONE (09:30)
[2022-08-17] MEDS ORDERED: ONDANSETRON 4 MG TAB.RAPDIS ONE (09:33)
[2022-08-17 09:41] LABS: BASOPHILS % (AUTO) 0.4 % (0.0-2.0); EOSINOPHILS % (AUTO) 0.5 % (0.0-6.0); HEMATOCRIT 48 % (39-51); HEMOGLOBIN 15.3 g/dL (13.5-17.5); LYMPHOCYTES % (AUTO) 28.4 % (20.0-44.0); MEAN CORPUSCULAR HGB CONC 32 g/dl (31.0-36.0); MEAN CORPUSCULAR VOLUME 90 fL (80-96); MONOCYTES # (AUTO) 0.8 K/uL (0.1-1.30); MONOCYTES % (AUTO) 7.3 % (2.0-12.0); NEUTROPHILS # (AUTO) 6.6 K/uL (1.8-8.9); NEUTROPHILS % (AUTO) 63.4 % (43.0-81.0); PLATELET COUNT (AUTO) 315 K/uL (150-450); RED BLOOD CELL COUNT(AUTO) 5.34 MIL/uL (4.5-6.0); WHITE BLOOD COUNT (AUTO) 10.4 K/uL (4.3-11.0)
[2022-08-17 09:58] LABS: CALCIUM, SERUM 9.2 mg/dL (8.5-10.1); CREATININE 1.2 mg/dL (0.6-1.3); POTASSIUM 3.4 mmol/L (3.5-5.1)
[2022-08-17 10:03] LABS: BILIRUBIN,TOTAL 0.2 mg/dL (0.2-1.0); TOTAL PROTEIN, SERUM 7.6 g/dL (6.4-8.2)
--- NOTE | 2022-08-17 10:46 | NUR ---
URINE SAMPLE OBTAINED
--- NOTE | 2022-08-17 11:00 | NUR ---
BIBS FOR ABDOMINAL PAIN. A/O X 3, ABLE TO MAKE NEEDS KNOWN. TOLERATING WELL ON ROOM AIR.
[2022-08-17 11:18] LABS: BILIRUBIN,URINE NEGATIVE (NEGATIVE); COLOR,URINE YELLOW (YELLOW); LEUKOCYTE ESTERASE ,URINE NEGATIVE (NEGATIVE); NITRITE, URINE NEGATIVE (NEGATIVE); PROTEIN,URINE NEGATIVE (NEGATIVE); UGLUCOSE NEGATIVE (NEGATIVE); UROBILINOGEN,URINE 0.2 EU/dL (0.2)
[2022-08-17] MEDS ORDERED: ONDA4TAB11 PO (12:14)
--- NOTE | 2022-08-17 12:46 | NUR ---
Patient discharged to home in stable condition. Written and verbal after care instructions given. Patient verbalizes understanding of instruction.
[2022-08-17 12:47] VITALS: BP 137/84
== END 2022-08-17 12:47 | disposition home or self-care (01) ==
LOC: ER 06:48
DX: K52.9 Noninfective gastroenteritis and colitis, unspecified (principal); R11.0 Nausea; F32.A Depression, unspecified; F41.9 Anxiety disorder, unspecified; F17.200 Nicotine dependence, unspecified, uncomplicated; Z79.899 Other long term (current) drug therapy
CPT/HCPCS: 99283; 85025; 80048; 83690; 80076; 81003; 36415; Q0162

== ENCOUNTER 2023-02-25 20:12 | Emergency (ER) | payer OTHER ==
[~2023-02-25] VITALS: Ht 182.9 cm; Wt 122.5 kg
[~2023-02-25 20:12] MED LIST changes: -OLANZAPINE 5 MG TABLET ONE; -OLANZAPINE 5 MG TABLET PO ONE; +ONDA4TAB11 PO
[2023-02-25 21:31] VITALS: BP 108/67; TEMP 98
[2023-02-25] MEDS ORDERED: KETOROLAC TROMETHAMINE INJ 60 MG/2 ML VIAL IM ONE (22:00)
[2023-02-25] MEDS ORDERED: KETOROLAC TROMETHAMINE INJ 30 MG/ML VIAL ONE (22:02)
[2023-02-25] MEDS ORDERED: CYCL10TA9 PO (22:31)
[2023-02-25] MEDS ORDERED: IBUP-1955 PO (22:31)
[2023-02-25 22:35] VITALS: O2SAT 100
== END 2023-02-25 22:36 | disposition home or self-care (01) ==
LOC: ER 20:20
DX: M54.50 Low back pain, unspecified (principal); F41.9 Anxiety disorder, unspecified; F32.A Depression, unspecified; F17.200 Nicotine dependence, unspecified, uncomplicated; Z79.899 Other long term (current) drug therapy
CPT/HCPCS: 99283; 96372; 72110; J1885

== ENCOUNTER 2023-03-05 20:04 | Emergency (ER) | payer OTHER ==
[~2023-03-05] VITALS: Ht 182.9 cm; Wt 122.5 kg
[~2023-03-05 20:04] MED LIST changes: +CYCL10TA9 PO; +IBUP-1955 PO
[2023-03-05 20:14] VITALS: BP 154/89; TEMP 98
[2023-03-05] MEDS ORDERED: LORA-259 PO (20:27)
[2023-03-05] MEDS ORDERED: LORAZEPAM 1 MG TABLET PO ONE (20:30)
[2023-03-05] MEDS ORDERED: LORAZEPAM 1 MG TABLET ONE (21:28)
[2023-03-05 21:31] VITALS: O2SAT 97
== END 2023-03-05 21:31 | disposition home or self-care (01) ==
LOC: ER 20:11
DX: F41.9 Anxiety disorder, unspecified (principal); F32.A Depression, unspecified; F17.200 Nicotine dependence, unspecified, uncomplicated; Z79.899 Other long term (current) drug therapy

== ENCOUNTER 2023-03-31 00:19 | Emergency (ER) | payer OTHER ==
[~2023-03-31] VITALS: Ht 182.9 cm; Wt 122.5 kg
[~2023-03-31 00:19] MED LIST changes: +LORA-259 PO
[2023-03-31 02:13] VITALS: BP 138/81; TEMP 98.7; O2SAT 98
[2023-03-31] MEDS ORDERED: CHLORDIAZEPOXIDE HCL 25 MG CAPSULE ONE (02:24)
[2023-03-31] MEDS ORDERED: CHLORDIAZEPOXIDE HCL 25 MG CAPSULE PO ONE (02:30)
== END 2023-03-31 03:46 | disposition home or self-care (01) ==
LOC: ER 00:21
DX: F19.10 Other psychoactive substance abuse, uncomplicated (principal); G89.29 Other chronic pain; F41.9 Anxiety disorder, unspecified; F32.A Depression, unspecified; F17.200 Nicotine dependence, unspecified, uncomplicated